=== PATIENT | male | born 1990 | race Two or more races ===

== ENCOUNTER 2017-07-31 18:53 | Emergency (ER) | payer OTHER ==
[~2017-07-31] VITALS: Ht 180.3 cm; Wt 86.2 kg
[2017-07-31] MEDS ORDERED: ACETAMINOPHEN ES 500 MG TABLET PO ONE (19:00)
[2017-07-31] MEDS ORDERED: ACETAMINOPHEN ES 500 MG TABLET ONE (19:11)
--- NOTE | 2017-07-31 19:29 | NUR ---
Patient walked in to ER c/o fever. Patient states he has had a fever and is coughing throughout the day. Patient states he took one dose of a family members "Amoxicillin" which he has the bottle for. Education provided regarding ABX. To room 4B.
[2017-07-31] MEDS ORDERED: HYDROCODONE/APAP 5-325MG TABLET PO ONE (19:45)
[2017-07-31] MEDS ORDERED: HYDROCODONE/APAP 5-325MG TABLET ONE (19:59)
--- NOTE | 2017-07-31 20:01 | NUR ---
Patient discharged to home in stable conditon. Written and verbal after care instructions given. Patient verbalizes understanding of instructions.
== END 2017-07-31 20:09 | disposition home or self-care (01) ==
LOC: ER 18:53
DX: J02.8 Acute pharyngitis due to other specified organisms (principal); B97.89 Other viral agents as the cause of diseases classified elsewhere
CPT/HCPCS: 99283; A4663

== ENCOUNTER 2019-09-07 18:47 | Emergency (ER) | payer MEDICAID, OTHER ==
[~2019-09-07] VITALS: Ht 180.3 cm; Wt 93.0 kg
--- NOTE | 2019-09-07 19:56 | NUR ---
: THANIA at bedside for MSE.
--- NOTE | 2019-09-07 20:10 | NUR ---
GROUP A STREP TEST DONE .
[2019-09-07] MEDS ORDERED: IBUPROFEN 800 MG TABLET PO ONE (20:15)
--- NOTE | 2019-09-07 20:20 | NUR ---
EKG DONE AND RESULTS GIVEN TO MD : THANIA .ST 124
[2019-09-07] MEDS ORDERED: IBUPROFEN 800 MG TABLET ONE (20:26)
[2019-09-07 20:51] VITALS: BP 128/86
== END 2019-09-07 20:51 | disposition home or self-care (01) ==
LOC: ER 18:49
DX: L05.91 Pilonidal cyst without abscess (principal); B34.9 Viral infection, unspecified
CPT/HCPCS: 36415; 86403; 87070; 93005; A4663

== ENCOUNTER 2022-04-16 19:36 | Emergency (ER) | payer BC, MEDICAID ==
[~2022-04-16] VITALS: Ht 180.3 cm; Wt 97.5 kg
--- NOTE | 2022-04-16 19:52 | NUR ---
Patient walked into ER with steady gait. NAD noted.
[2022-04-16] MEDS ORDERED: LIDOCAINE 2%-EPI 1:100,000 20 ML VIAL ONE (19:54)
--- NOTE | 2022-04-16 20:20 | NUR ---
Dr. Solano at bedside. [facility].
[2022-04-16] MEDS ORDERED: SULF1TAB48 PO (20:36)
[2022-04-16] MEDS ORDERED: SULFAMETH/TRIMETH 800/160 MG TABLET ONE (20:40)
[2022-04-16] MEDS ORDERED: LIDOCAINE 2%-EPI 1:100,000 20 ML VIAL IJ ONE (20:45)
[2022-04-16] MEDS ORDERED: SULFAMETH/TRIMETH 800/160 MG TABLET PO ONE (20:45)
--- NOTE | 2022-04-16 20:48 | NUR ---
Patient discharged to home in stable condition. Ambulatory with steady gait. NAD noted. A/Ox4. Written and verbal after care instructions given. Patient verbalizes understanding of instructions. Stressed follow up or return to ER for worsening s/s. All belongings with patient.
[2022-04-16 20:50] VITALS: BP 135/89
== END 2022-04-16 20:52 | disposition home or self-care (01) ==
LOC: ER 19:42
DX: L05.01 Pilonidal cyst with abscess (principal)
CPT/HCPCS: 87070; A4663

== ENCOUNTER 2022-04-30 07:00 | Emergency (ER) | payer SELFPAY ==
[~2022-04-30 07:00] MED LIST: SULF1TAB48 PO
--- NOTE | 2022-04-30 07:41 | NUR ---
Pt not in waiting room.
== END 2022-04-30 07:42 | disposition left against medical advice (07) ==
LOC: ER 07:00
DX: Z53.21 Procedure and treatment not carried out due to patient leaving prior to being seen by health care provider (principal)

== ENCOUNTER 2022-04-30 12:34 | Emergency (ER) | payer BC ==
[~2022-04-30] VITALS: Ht 180.3 cm; Wt 95.3 kg
[2022-04-30] MEDS ORDERED: LORAZEPAM 0.5 MG TABLET ONE (14:00)
[2022-04-30] MEDS ORDERED: LORAZEPAM 0.5 MG TABLET PO ONE (14:00)
[2022-04-30] MEDS ORDERED: KETOROLAC TROMETHAMINE 30 MG INJ IM ONE (14:00)
[2022-04-30] MEDS ORDERED: KETOROLAC TROMETHAMINE 30 MG INJ ONE (14:01)
--- NOTE | 2022-04-30 14:59 | NUR ---
DR. HOUSTON DISCUSSED DISCHARGE HOME MANAGEMENT WITH PATIENT. EDUCATED ON CARE AT HOME. NO FURTHER QUESTIONS. WORK EXCUSE HANDED TO PATIENT. STABLE FOR DISCHARGE.
[2022-04-30 15:02] VITALS: BP 130/72
== END 2022-04-30 15:03 | disposition home or self-care (01) ==
LOC: ER 12:34
DX: M54.2 Cervicalgia (principal); M25.512 Pain in left shoulder
CPT/HCPCS: 99283; 96372; J1885; A4663

== ENCOUNTER 2025-02-21 06:28 | Emergency (ER) | payer BC ==
[~2025-02-21] VITALS: Ht 180.3 cm; Wt 93.0 kg
[2025-02-21] MEDS ORDERED: KETO10TA2 PO (06:48)
[2025-02-21 07:56] VITALS: BP 113/60; TEMP 97.5; O2SAT 98
== END 2025-02-21 07:56 | disposition home or self-care (01) ==
LOC: ER 06:40
DX: L76.22 Postprocedural hemorrhage of skin and subcutaneous tissue following other procedure (principal); F19.10 Other psychoactive substance abuse, uncomplicated; R03.0 Elevated blood-pressure reading, without diagnosis of hypertension
CPT/HCPCS: A4606; A4663